=== PATIENT | female | born 1980 | race Caucasian/White ===

== ENCOUNTER 2018-08-22 21:43 | Emergency (ER) | payer SELFPAY ==
--- NOTE | 2018-08-22 22:34 | EDM.PDOC ---
ED HPI GENERAL MEDICAL PROBLEM - General Chief Complaint: ENT Problem Stated Complaint: SORE THROAT LOW ENERGY Time Seen by Provider: 08/22/18 22:15 Source of Information: Reports: Patient History Limitations: Reports: No Limitations - History of Present Illness INITIAL COMMENTS - FREE TEXT/NARRATIVE: The patient states that she has had rhinorrhea, a dry cough, sinus pressure, generalized body aches, and fatigue for 5 days. She is also had a sore throat for 5 days, but states that it has been bad for the past 3 days. No recent fever. She has had nausea, but no emesis. No constipation or diarrhea. No urinary symptoms. The patient states that she has been taking Zycam, lozenges, and Flonase, without any relief. 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 She is in this area for work. Treatments ELECTRIC POWERLINE EXAMINER: Reports: Other (see below) Other Treatments ELECTRIC POWERLINE EXAMINER: tylenol today Throat Pain Score (Numeric/FACES): 4 - Related Data Allergies Allergy/AdvReac Type Severity Reaction Status Date / Time hydrocodone Allergy Other Verified 08/22/18 22:01 latex Allergy Rash Verified 08/22/18 22:01 Home Meds: Home Meds Capsaicin [Zostrix 0.025% Crm] 60 gm .XX TID PRN #1 tube 08/06/18 [Rx] valACYclovir [Valtrex] 1,000 mg PO BID #20 tab 08/06/18 [Rx] Past Medical History MATE FOURTH History: Reports: Therapeutic (x 1) Endocrine/Metabolic History: Reports: Obesity/BMI 30+ - Infectious Disease History Infectious Disease History: Reports: Herpes, Shingles - Past Surgical History HEENT Surgical History: Reports: Oral Surgery (wisdom teeth extraction) GI Surgical History: Reports: Hernia, Abdominal (umbilical) Female Surgical History: Reports: D&C (x 2) Social & Family History - Tobacco Use Smoking Status *Q: Former Smoker Month/Year Tobacco Last Used: Smoked as a teenager - Caffeine Use Caffeine Use: Reports: Soda - Alcohol Use Alcohol Use History: No - Recreational Drug Use Recreational Drug Use: Yes Drug Use in Last 12 Months: No Recreational Drug Type: Reports: Marijuana/Hashish (last smoked as a teenager) - Living Situation & Occupation Living situation: Reports: (), Other (Work housing) 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 ED EXAM, GENERAL - Physical Exam Exam: See Below Exam Limited By: No Limitations General Appearance: Alert, WD/WN, No Apparent Distress Eye Exam: Bilateral Eye: EOMI, Normal Inspection Ears: Normal External Exam, Normal Canal, Hearing Grossly Normal, Normal TMs Nose: Normal Inspection, No Blood, Other (Bilateral nasal mucosa edema) Throat/Mouth: Normal Inspection, Normal Lips, Normal Teeth, Normal Gums, Normal Voice, No Airway Compromise, Other (Mild posterior oropharyngeal erythema, without swelling) Head: Atraumatic, Normocephalic Neck: Normal Inspection, Supple, Non-Tender, Full Range of Motion. No: Lymphadenopathy (L), Lymphadenopathy (R) Respiratory/Chest: No Respiratory Distress, Lungs Clear, Normal Breath Sounds, No Accessory Muscle Use. No: Decreased Breath Sounds, Crackles, Rhonchi, Wheezing, Prolonged Expiration Cardiovascular: Normal Peripheral Pulses, Regular Rate, Rhythm, No Gallop, No JVD, No Murmur, No Rub Peripheral Pulses: 4+: Radial (L), Radial (R) GI/Abdominal: Normal Bowel Sounds, Soft, Non-Tender, No Organomegaly, No Distention, No Abnormal Bruit, No Mass, Other (Obese) (Female) Exam: Deferred Rectal (Female) Exam: Deferred Back Exam: Normal Inspection, Full Range of Motion, NT Extremities: Normal Inspection, Normal Range of Motion, Normal Capillary Refill , Other (Trace bilateral pretibial edema) Neurological: Alert, Oriented, Normal Cognition, No Motor/Sensory Deficits Psychiatric: Normal Affect Skin Exam: Warm, Dry, Intact, Normal Color, No Rash Course - Vital Signs Last Recorded V/S: Last Vital Signs Temp 35.8 C 08/22/18 21:56 Pulse 74 08/22/18 21:56 Resp 20 08/22/18 21:56 BP 134/65 08/22/18 21:56 Pulse Ox 100 08/22/18 21:56 - Orders/Labs/Meds Orders: Active Orders 24 hr Category Date Time Status CULTURE STREP A CONFIRMATION [] Stat Lab 08/22/18 22:30 Results STREP SCRN A RAPID W CULT CONF [] Stat Lab 08/22/18 22:30 Results - Re-Assessments/Exams Free Text/Narrative Re-Assessment/Exam: 08/22/18 22:33 On examination, the patient has bilateral nasal mucosa edema and mild posterior pharyngeal erythema, otherwise, her physical examination is unremarkable. Her lungs are entirely clear to auscultation bilaterally, she reports having a nonproductive cough, and her oxygen saturation is 100% on room air. I offered to order a chest radiograph, however, the patient declined. I have obtained a rapid strep swab, but I do not see an indication for any other tests at this time. 08/22/18 23:01 Test results discussed with the patient. Her rapid strep test is negative. The patient appears to be suffering from a viral URI. I explained that antibiotics are of no benefit, and may be harmful. I explained that [id number] cough and cold remedies have been shown to be of no benefit, therefore I recommended no such treatment. Unfortunately, this virus will simply have to run its course. The patient expressed understanding. The patient requested a note for work from this morning. I explained that I can provide the patient with documentation that she was here tonight, but I cannot excuse her from this morning. Departure - Departure Time of Disposition: 23:03 Disposition: Home, Self-Care 01 Condition: Good Clinical Impression: Viral URI with cough - Discharge Information *PRESCRIPTION DRUG MONITORING PROGRAM REVIEWED*: Not Applicable *COPY OF PRESCRIPTION DRUG MONITORING REPORT IN PATIENT MARK: Not Applicable Instructions: Upper Respiratory Infection, Adult, [id number] Referrals: PCP,None [Primary Care Provider] - Forms: ED Department Discharge Additional Instructions: You were seen in the emergency room for 5 days of a runny nose, sore throat, cough, sinus pressure, body aches, and fatigue. Workup in the ER included a rapid strep test, which returned negative. Based on your history, is able examination, and rapid strep test results, you are MOST LIKELY suffering from a viral URI, also known as a common cold. Unfortunately, there are no medications to treat a common cold - it will have to run its course, which typically takes about 12 days. As discussed, we do not recommend that you take any [id number] cough or cold remedies, as they have been shown to be of no benefit. If any other problems, please do not hesitate to return to the ER. - My Orders Last 24 Hours: My Active Orders 08/22/18 22:30 CULTURE STREP A CONFIRMATION [RM] Stat STREP SCRN A RAPID W CULT CONF [RM] Stat - Assessment/Plan Last 24 Hours: My Active Orders 08/22/18 22:30 CULTURE STREP A CONFIRMATION [RM] Stat STREP SCRN A RAPID W CULT CONF [] Stat
== END 2018-08-22 23:10 | disposition home or self-care (01) ==
LOC: JD.ED 21:43
DX: J06.9 Acute upper respiratory infection, unspecified (principal); Z87.891 Personal history of nicotine dependence; Z91.040 Latex allergy status; Z88.6 Allergy status to analgesic agent
CPT/HCPCS: 87081; 87430; 99283